=== PATIENT | female | born 1980 | race Asian ===

== ENCOUNTER 2017-09-21 11:45 | Emergency (ER) | payer SELFPAY ==
[2017-09-21 11:47] VITALS: BP 154/82; PULSE 95; RESP 14; TEMP 97.9; O2SAT 100
--- NOTE | 2017-09-21 13:10 | PD ---
HPI Chief Complaint: Related Problem Time Seen by Provider: 12:58 Travel History International Travel<30 days: No Contact w/Intl Traveler<30days: No Traveled to known affect area: No History of Present Illness HPI Patient is a 37-year-old female who is about 8 weeks by date, reports that she had noticed some vaginal spotting and bleeding this morning. Patient reports that this is her first , denies any history of miscarriages or abortions. Patient reports no abdominal cramping or pain, denies any vaginal discharge. Patient reports that she does have an appointment next week [facility] for [facility] specialist appointment. Denies any fever or chills, denies any dysuria, urinary urgency or frequency. Patient with no other complaints at this time. FORMERLY [facility] Past Medical History Medical History: Denies Significant Hx ?: LMP: 07/26/17 : 1 Past Surgical History Surgical History: No Previous Surgery Social History Alcohol Use: No Tobacco Use: No Substance Use: No Allergies-Medications (Allergen,Severity, Reaction): Coded Allergies: No Known Allergies (Unverified , 09/21/17) Review of Systems General / Constitutional: No: Fever Eyes: No: Visual changes HENT: No: Headaches Cardiovascular: No: Chest Pain or Discomfort Respiratory: No: Shortness of Breath Gastrointestinal: No: Nausea, Vomiting, Diarrhea, Abdominal Pain Genitourinary: Positive: Vaginal Bleeding, No: Urgency, Frequency, Dysuria, Hematuria, Pelvic Pain, Flank Pain Musculoskeletal: No: Pain Skin: No Rash Neurologic: No: Weakness Psychiatric: No: Depression Endocrine: No: Polydipsia Hematologic/Lymphatic: No: Easy Bruising Physical Exam Narrative GENERAL: NAD SKIN: Focused skin assessment warm/dry. HEAD: Atraumatic. Normocephalic. EYES: Pupils equal and round. No scleral icterus. No injection or drainage. ENT: No nasal bleeding or discharge. Mucous membranes pink and moist. NECK: Trachea midline. No JVD. CARDIOVASCULAR: Regular rate and rhythm. No murmur appreciated. RESPIRATORY: No accessory muscle use. Clear to auscultation. Breath sounds equal bilaterally. GASTROINTESTINAL: Abdomen soft, non-tender, nondistended. Hepatic and splenic margins not palpable. MUSCULOSKELETAL: No obvious deformities. No clubbing. No cyanosis. No edema. NEUROLOGICAL: Awake and alert. Normal speech. PSYCHIATRIC: Appropriate mood and affect; insight and judgment normal. Data Data Last Documented VS Vital Signs Date Time Temp Pulse Resp B/P (MAP) Pulse Ox O2 Delivery O2 Flow Rate FiO2 09/21/17 12:50 16 09/21/17 11:47 97.9 95 154/82 (106) 100 Orders Orders Beta Hcg (Quant/Titer) (09/21/17 11:56) Complete Blood Count With Diff (09/21/17 11:56) Comprehensive Metabolic Panel (09/21/17 11:56) Complete Rh (09/21/17 11:56) Urinalysis - C+S If Indicated (09/21/17 11:56) Ed Urine Pregnancytest Poc (09/21/17 11:56) Us Pelvis (Ques Pr/Ect)W Trans (09/21/17 ) Labs Laboratory Tests Test 09/21/17 12:35 White Blood Count 12.0 TH/MM3 Red Blood Count 4.45 MIL/MM3 Hemoglobin 14.1 GM/DL Hematocrit 40.3 % Mean Corpuscular Volume 90.5 FL Mean Corpuscular Hemoglobin 31.6 PG Mean Corpuscular Hemoglobin Concent 35.0 % Red Cell Distribution Width 12.9 % Platelet Count 277 TH/MM3 Mean Platelet Volume 7.8 FL Neutrophils (%) (Auto) 82.5 % Lymphocytes (%) (Auto) 10.0 % Monocytes (%) (Auto) 5.0 % Eosinophils (%) (Auto) 2.2 % Basophils (%) (Auto) 0.3 % Neutrophils # (Auto) 9.9 TH/MM3 Lymphocytes # (Auto) 1.2 TH/MM3 Monocytes # (Auto) 0.6 TH/MM3 Eosinophils # (Auto) 0.3 TH/MM3 Basophils # (Auto) 0.0 TH/MM3 CBC Comment DIFF FINAL Differential Comment Urine Color LIGHT-YELLOW Urine Turbidity CLEAR Urine pH 7.0 Urine Specific [place] 1.006 Urine Protein NEG mg/dL Urine Glucose (UA) NEG mg/dL Urine Ketones NEG mg/dL Urine Occult Blood MOD Urine Nitrite NEG Urine Bilirubin NEG Urine Urobilinogen LESS THAN 2.0 MG/DL Urine Leukocyte Esterase NEG Urine RBC 1 /hpf Urine WBC 1 /hpf Urine Squamous Epithelial Cells 1 /hpf Urine Bacteria RARE /hpf Urine Mucus FEW /lpf Microscopic Urinalysis Comment CULT NOT INDICATED Blood Urea Nitrogen 7 MG/DL Creatinine 0.50 MG/DL Random Glucose 84 MG/DL Total Protein 8.2 GM/DL Albumin 3.9 GM/DL Calcium Level 8.9 MG/DL Alkaline Phosphatase 44 U/L Aspartate Amino Transf (AST/SGOT) 17 U/L Alanine Aminotransferase (ALT/SGPT) 22 U/L Total Bilirubin 0.3 MG/DL Sodium Level 136 MEQ/L Potassium Level 3.8 MEQ/L Chloride Level 106 MEQ/L Carbon Dioxide Level 23.8 MEQ/L Anion Gap 6 MEQ/L Estimat Glomerular Filtration Rate 138 ML/MIN Human Chorionic Gonadotropin, Quant 84082 MIU/ML MDM Medical Decision Making Medical Screen Exam Complete: Yes Emergency Medical Condition: Yes Medical Record Reviewed: Yes Interpretation(s) Vital Signs Date Time Temp Pulse Resp B/P (MAP) Pulse Ox O2 Delivery O2 Flow Rate FiO2 09/21/17 12:50 16 09/21/17 11:47 97.9 95 14 154/82 (106) 100 Differential Diagnosis Threatened miscarriage, early , UTI, anemia Narrative Course 37-year-old female who is nontoxic on evaluation, presents to the emergency room with complaints of irregular vaginal spotting with . Patient is 8 weeks at this time with her first , she does have her first ob appointment next week with [facility]. Patient with no abdominal pain, no cramping at this time. During the course of the patients emergency department visit, the patients history, examination, and differential diagnosis were reviewed with the patient. The patient was placed on a twister doffer with oximetry and frequent blood pressure monitoring. The patient had an IV access obtained and blood work sent for analysis. The patient was initially provided IVF The patients laboratory studies were reviewed and remarkable for: Laboratory Tests Test 09/21/17 12:35 White Blood Count 12.0 TH/MM3 (4.0-11.0) Red Blood Count 4.45 MIL/MM3 (4.00-5.30) Hemoglobin 14.1 GM/DL (11.6-15.3) Hematocrit 40.3 % (35.0-46.0) Mean Corpuscular Volume 90.5 FL (80.0-100.0) Mean Corpuscular Hemoglobin 31.6 PG (27.0-34.0) Mean Corpuscular Hemoglobin Concent 35.0 % (32.0-36.0) Red Cell Distribution Width 12.9 % (11.6-17.2) Platelet Count 277 TH/MM3 (150-450) Mean Platelet Volume 7.8 FL (7.0-11.0) Neutrophils (%) (Auto) 82.5 % (16.0-70.0) Lymphocytes (%) (Auto) 10.0 % (9.0-44.0) Monocytes (%) (Auto) 5.0 % (0.0-8.0) Eosinophils (%) (Auto) 2.2 % (0.0-4.0) Basophils (%) (Auto) 0.3 % (0.0-2.0) Neutrophils # (Auto) 9.9 TH/MM3 (1.8-7.7) Lymphocytes # (Auto) 1.2 TH/MM3 (1.0-4.8) Monocytes # (Auto) 0.6 TH/MM3 (0-0.9) Eosinophils # (Auto) 0.3 TH/MM3 (0-0.4) Basophils # (Auto) 0.0 TH/MM3 (0-0.2) CBC Comment DIFF FINAL Differential Comment Urine Color LIGHT-YELLOW (YELLW/STRAW) Urine Turbidity CLEAR (CLEAR) Urine pH 7.0 (5.0-8.5) Urine Specific [place] 1.006 (1.002-1.035) Urine Protein NEG mg/dL (NEG-TRACE) Urine Glucose (UA) NEG mg/dL (NEG) Urine Ketones NEG mg/dL (NEG) Urine Occult Blood MOD (NEG) Urine Nitrite NEG (NEG) Urine Bilirubin NEG (NEG) Urine Urobilinogen LESS THAN 2.0 MG/DL (LESS Urine Leukocyte Esterase NEG (NEG) Urine RBC 1 /hpf (0-3) Urine WBC 1 /hpf (0-5) Urine Squamous Epithelial Cells 1 /hpf (0-5) Urine Bacteria RARE /hpf (NONE) Urine Mucus FEW /lpf (OCC) Microscopic Urinalysis Comment CULT NOT INDICATED Blood Urea Nitrogen 7 MG/DL (7-18) Creatinine 0.50 MG/DL (0.50-1.00) Random Glucose 84 MG/DL (74-106) Total Protein 8.2 GM/DL (6.4-8.2) Albumin 3.9 GM/DL (3.4-5.0) Calcium Level 8.9 MG/DL (8.5-10.1) Alkaline Phosphatase 44 U/L (45-117) Aspartate Amino Transf (AST/SGOT) 17 U/L (15-37) Alanine Aminotransferase (ALT/SGPT) 22 U/L (10-53) Total Bilirubin 0.3 MG/DL (0.2-1.0) Sodium Level 136 MEQ/L (136-145) Potassium Level 3.8 MEQ/L (3.5-5.1) Chloride Level 106 MEQ/L (98-107) Carbon Dioxide Level 23.8 MEQ/L (21.0-32.0) Anion Gap 6 MEQ/L (5-15) Estimat Glomerular Filtration Rate 138 ML/MIN (>89) Human Chorionic Gonadotropin, Quant 10097 MIU/ML (0-5) Blood type A positive Radiology studies were reviewed and remarkable for: Last Impressions Pelvis Ultrasound 09/21/17 0000 Signed Impressions: Service Date/Time: Thursday, September 21, 2017 13:34 - CONCLUSION: 1. Viable intrauterine gestation estimated age is 8 weeks 6 days. 2. Uterine fibroid measuring 5.6 x 6.3 CM. 3. Possible endometrial polyp measuring 1.1 cm. 4. No free fluid identified within the pelvis. The ovaries are unremarkable in appearance. Gabe Stanley MD Patient is 8 weeks 6 days , positive IUP. Her blood type is A+, she does not require RhoGAM at this time. Patient with no abdominal pain or cramping at this time. Patient will be discharged to home with instructions for strict pelvic rest. She'll be given a copy of her studies as she will need to follow-up with her [facility] next week as scheduled. Threatened miscarriage instructions will be given to patient. Signs and symptoms of when to return to the emergency room was reviewed patient in detail. Diagnosis Primary Impression: Threatened in early Additional Impression: Fibroid, uterine Patient Instructions: General Instructions Additional Instructions: Please provide patient with a copy of their lab work and studies at discharge* * Please follow up with your primary care doctor in 2-3 days Return to the ER if symptoms worsen or progress Return to the ER as needed Pelvic rest until you are seen and cleared by your [facility] Disposition: 01 DISCHARGE HOME Condition: Stable Key Abarca DO Sep 21, 2017 13:10
[2017-09-21 13:11] LABS: AUTOMATED NEUTROPHIL # 9.9 TH/MM3 (1.8-7.7); BASOPHIL % 0.3 % (0.0-2.0); EOSINOPHIL # 0.3 TH/MM3 (0-0.4); EOSINOPHIL % 2.2 % (0.0-4.0); HEMATOCRIT 40.3 % (35.0-46.0); HEMOGLOBIN 14.1 GM/DL (11.6-15.3); LYMPHOCYTE # 1.2 TH/MM3 (1.0-4.8); MEAN CELL VOLUME 90.5 FL (80.0-100.0); MEAN CORPUSCULAR HEMOGLOBIN 31.6 PG (27.0-34.0); MEAN PLATELET VOLUME 7.8 FL (7.0-11.0); MONOCYTE # 0.6 TH/MM3 (0-0.9); NEUT % 82.5 % (16.0-70.0); PLATELET COUNT 277 TH/MM3 (150-450); RED BLOOD COUNT 4.45 MIL/MM3 (4.00-5.30); RED CELL DISTRIBUTION WIDTH 12.9 % (11.6-17.2)
[2017-09-21 13:16] LABS: BACTERIA, URINE RARE /hpf; BILIRUBIN, URINE NEG (NEG); BLOOD, URINE MOD (NEG); GLUCOSE,URINE NEG (NEG); KETONE, URINE NEG (NEG); MUCUS URINE FEW /lpf (OCC); NITRITE,URINE NEG (NEG); SQUAMOUS EPITHELIAL CELL URINE 1 /hpf (0-5); URINE COLOR LIGHT-YELLOW (YELLW/STRAW); URINE LEUKOCYTE ESTERASE NEG (NEG)
[2017-09-21 13:35] LABS: ALBUMIN 3.9 GM/DL (3.4-5.0); ALT (GPT) 22 U/L (10-53); AST (GOT) 17 U/L (15-37); BICARBONATE 23.8 MEQ/L (21.0-32.0); BLOOD UREA NITROGEN 7 MG/DL (7-18); CALCIUM 8.9 MG/DL (8.5-10.1); CHLORIDE 106 MEQ/L (98-107); GLOMERULAR FILTRATION RATE 138 ML/MIN (>89); GLUCOSE,RANDOM 84 MG/DL (74-106); SODIUM (NA) 136 MEQ/L (136-145)
[2017-09-21 13:51] LABS: ALKALINE PHOSPHATASE 44 U/L (45-117); TOTAL BILIRUBIN ADULT 0.3 MG/DL (0.2-1.0); TOTAL PROTEIN 8.2 GM/DL (6.4-8.2)
--- NOTE | 2017-09-21 14:43 | RADRPT ---
EXAM DATE/TIME: 09/21/2017 13:34 [facility] COMPARISON: No previous studies available for comparison. INDICATIONS : Vaginal bleeding. LAB(S): Beta-hC MEDICAL HISTORY : . SURGICAL HISTORY : None. ENCOUNTER: Initial ACUITY: 1 day PAIN SCORE: 0/10 LOCATION: Bilateral pelvis MEASUREMENTS: UTERUS: 10.0 x 8.8 x 7.5 cm ENDOMETRIAL STRIPE: 11 mm RIGHT OVARY: 3.1 x 2.2 x 1.6 cm LEFT OVARY: 2.7 x 1.6 x 1.2 cm FREE FLUID: No CROWN RUMP LENGTH: 1.8 cm = 8 WKS 6 DAYS FHR: 160 BPM FINDINGS: UTERUS: The examination demonstrates a circumscribed areas of heterogeneous echotexture within the uterine fu ndus most consistent with uterine fibroid measuring 5.6 x 6.3 cm. The exam demonstrates a 1.1 x 1.1 c m area of increased echogenicity in the endometrial cavity possibly representing an endometrial polyp . The examination also demonstrates a viable intrauterine gestation with an estimated age of 8 weeks 6 days. There is a heartbeat present at 160 beats per minute. RIGHT OVARY: Ovary contains no mass or significant cystic lesion. LEFT OVARY: Ovary contains no mass or significant cystic lesion. MISCELLANEOUS: No free fluid. CONCLUSION: 1. Viable intrauterine gestation estimated age is 8 weeks 6 days. 2. Uterine fibroid measuring 5.6 x 6.3 CM. 3. Possible endometrial polyp measuring 1.1 cm. 4. No free fluid identified within the pelvis. The ovaries are unremarkable in appearance. Gabe Stanley MD on September 21, 2017 at 14:35 Board Certified Radiologist. This report was verified electronically.
== END 2017-09-21 19:42 | disposition home or self-care (01) ==
LOC: NEPD 11:45
DX: O20.0 Threatened abortion (principal); O34.11 Maternal care for benign tumor of corpus uteri, first trimester; Z3A.08 8 weeks gestation of pregnancy
CPT/HCPCS: 76700; 76817; 80053; 81001; 84702; 84703; 85025; 86901

== ENCOUNTER → 2017-09-30 | Outpatient (CLI) | payer SELFPAY | LOC: HPND 08:28 | PROVIDERS: ATTEND Obstetrics & Gynecology | DX: O09.521 Supervision of elderly multigravida, first trimester (principal); O34.11 Maternal care for benign tumor of corpus uteri, first trimester; O26.841 Uterine size-date discrepancy, first trimester; O36.8910 Maternal care for other specified fetal problems, first trimester, not applicable or unspecified | CPT/HCPCS: 76801 ==